=== PATIENT | male | born 2005 | race Caucasian/White ===

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

== ENCOUNTER 2025-01-09 05:37 | Day surgery (SDC) | payer SELFPAY ==
[2025-01-09] VITALS (10 sets, daily range): BP systolic 113–129; BP diastolic 65–80; PULSE 59–84; RESP 10–20; TEMP 36.2–36.8; O2SAT 84–100; BMI 23.1
[2025-01-09] MEDS: 0.9% Normal Saline (1000mL) 1,000 ML 15 ML IV (06:52)
--- NOTE | 2025-01-09 07:08 | PCM.PRE.AN2 ---
ASA Classification* ASA Classification ASA Classification: 2 Assessment & Plan Anesthesia* Anesthesia Assessment Anesthesia Assessment: Discussed sedation and/or anesthesia options, risks, benefits, and alternatives with patient/parents/legal guardian/POA. Questions invited. The patient/parents/legal guardian/POA seems to understand and agrees to proceed with anesthesia plan. Reviewed the physical assessment, medical history, allergy history and patient home medications list prior to surgery/procedure/anesthetic and documented any changes. Performed airway and anesthesia risk assessments. Anesthesia Type Anesthesia Type: General and Block (Patient is consented for postop block for pain control.) History Source History Obtained from:: Patient and Chart Anesthesia Focused Assessment* Temperature: 98.3 F Pulse Rate: 70 Blood Pressure: 129/79 Respiratory Rate: 18 Pulse Ox: 100 Oxygen Delivery Method: Room Air Airway Assessment Mouth opens: >3 cm Mallampati Score: II Teeth Condition: Intact Neck Range of motion (ROM): Full ROM Focused Labs Anesthesia Preop lab: CBC CHEMISTRY COAG Pre-Assessment Diagnosis/Proposed Procedure Planned Operative Procedure(s): (L) Arthroscopy, Knee ACL Anesthesia History 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 When Was Last Pacemaker Check QUESTION #4 FULL TEXT: You/Your Family Experience fever (hyperthermia) with Anesthesia Patient has several family members who had issues with anesthesia. Unknown which medications these were. No high temperatures or fevers as far as they know. Last Oral Intake Last Oral intake: Last Oral Intake NPO since 20:00 01/09/25 06:22 Meds taken in AM with sips of No 01/09/25 06:22 water? Meds patient instructed to take am of surgery PONV PONV - reception manager: PONV - reception manager Female No 12/26/24 08:06 HX of Motion Sickness Yes 12/26/24 08:06 HX of N/V After Surgery No 12/26/24 08:06 Non-Smoker Yes 12/26/24 08:06 Duration of Surgery greater Yes 12/26/24 08:06 than 60 minutes Number of Risk Factors 3 12/26/24 08:06 PONV Score Moderate Risk 12/26/24 08:06 Height & Weight Height & Weight: Anesthesia: Height & Weight Height 6 ft 01/09/25 06:22 Weight: 77.4 kg 01/09/25 06:22 Body Mass Index (BMI) 23.1 01/09/25 06:22 Respiratory Assessment Respiratory Assessment - reception manager: Respiratory Tract Infection Hx - reception manager Hx Respiratory Tract Infection Yes: AWARE TO NOTIFY DR IF 12/26/24 08:06 SYMPTOMS NO IMPROVED Any additional information?: Yes Hx Respiratory Tract Infection: Yes (Cold resolved back 2 weeks ago.) STOP Sleep Apnea STOP Sleep Apnea - reception manager: STOP Sleep Apnea - reception manager Hx Hypertension No 12/26/24 08:06 Hx Sleep Apnea No 12/26/24 08:06 CPAP BIPAP Do you snore loudly (louder No 12/26/24 08:06 than talking or can be heard Do you often feel tired/ No 12/26/24 08:06 fatigued/ sleepy during daytime? Has anyone observed you stop No 12/26/24 08:06 breathing during sleep? STOP Results Negative 12/26/24 08:06 QUESTION #5 FULL TEXT : Do you snore loudly (louder than talking or can be heard through closed doors)? 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 Specify any problems Hx of Preganancy in last 3 N/A 12/26/24 08:06 Months Nurse Filling Out Transfusion MGRIFFITH 12/26/24 08:06 & Questions: Date: 12/26/24 12/26/24 08:06 Time: 08:08 12/26/24 08:06 Patient unable to answer at this time (ie. confused, unrespo /Reproduction History /Reproductive History - reception manager: /Reproductive Hx- reception manager Hx Now Gestational Age (in weeks): EDC: Hx Hx Para Hx Section SAB Active Medications Active Medications: Current Medications Generic Name Dose Route Start Last Admin Trade Name Freq PRN Reason Stop Dose Admin Cefazolin Sodium 2 gm/ N/A 20 mls @ 400 mls/hr 01/09/25 07:30 IV 01/09/25 07:32 PREOP ONE Sodium Chloride 1,000 mls @ 15 mls/hr 01/09/25 06:00 01/09/25 06:52 IV 01/14/25 19:19 15 mls/hr .Q48H KAMILLA Administration Protocol PFSH Medical History Non-smoker Home Medications ?Medication ?Instructions ?Recorded ?Last Taken ?Type ascorbic acid (vitamin C) 500 mg 500 mg PO DAILY 12/26/24 01/01/25 History tablet (C-500) Allergy/AdvReac Type Severity Reaction Status Date / Time No Known Allergies Allergy Verified 01/09/25 06:21 Surgical History (Updated 12/26/24 @ 08:20 by Catrachita Monae) No significant past surgical history Social History Smoking Status: Never smoker Review of Systems (Anesthesia) ROS Narrative System reviewed and no additional complaints, except as documented.
[2025-01-09] MEDS: Cefazolin 2 GM in Syringe IV (08:02)
[2025-01-09] MEDS: Epinephrine (1 mg/ml) 1 MG/ML VIAL (08:08)
[2025-01-09] MEDS: Ketorolac 15 MG/ML Vial IV (10:20)
--- NOTE | 2025-01-09 10:25 | OP.PCM_ITS ---
Operative Report (Standard) Operative Information Date of Procedure: 01/09/25 Pre-Operative Diagnosis: 1. Left knee anterior cruciate ligament tear 2. Left knee medial meniscus tear Post-Operative Diagnosis: 1. Left knee anterior cruciate ligament tear 2. Left knee medial meniscus tear Surgery/Procedure Performed: Left knee arthroscopic anterior cruciate ligament reconstruction with quadriceps tendon autograft and medial meniscus repair vessel manager: Yes Hourly Manager: Barbara Stacy Tasks completed by cancer genetics assistant: Opening & closing, Harvesting grafts, Implanting device, Hemostasis: Electrocautery and Retracting Additional geological survey field assistant?: No Type of Anesthesia: General/Regional RN Documented Start/Stop Times: Operation Date: 01/09/25 07:30 Case Time Into Pre-Op 01/09/25 05:57 Anesthesia Start 01/09/25 07:46 Into Room 01/09/25 07:46 Procedure Start 01/09/25 08:08 Procedure End 01/09/25 09:54 Anesthesia End 01/09/25 09:57 Out of Room 01/09/25 09:57 Into Recovery 01/09/25 09:59 Procedure Start Time: 08:08 Procedure Stop Time: 09:54 Select all DRAINS/GRAFTS/IMPLANTS that apply: Implanted device Implanted device details: Arthrex 4.75 mm bio composite swivel lock anchor times Arthrex tight rope with tibial sided ABS button fixation, Arthrex fiber stitch x 1 Estimated Blood Loss: 10 cc Specimen collected: No Description of surgery: Patient was identified in preoperative holding area by name, medical record number, and date of . The operative extremity was marked. Informed consent confirmed with the patient. All questions were answered to patient satisfaction. At time of his procedure, patient was brought to the operative suite and positioned supine on a standard operating table. All bony prominences were well-padded. General anesthesia was induced and laryngeal mask airway placed. After securing the tube, I placed a well-padded pneumatic tourniquet on the upper thigh of the operative extremity. I first examined the leg under anesthesia. There was a positive pivot shift and Michael. We then positioned the operative extremity in a circumferential arthroscopic leg mchugh. A well-le g mchugh was placed on the patient's nonoperative thigh. We then dropped the foot of the bed 90 degrees. We then prepped and draped the operative lower extremity in a normal, sterile orthopedic fashion. We performed a timeout with all parties in attendance in agreement with the side, site, operation to be performed. No concerns were voiced and we elected to proceed with surgery. 2 g Ancef was administered for antibiotic prophylaxis prior to the incision by the anesthesia staff. Given the positive provocative findings and positive MRI findings consistent with ACL rupture, I elected to harvest the graft first. I planned a midline incision overlying the quadriceps tendon approximately 4 cm in length. Skin was sharply incised with a 15 blade scalpel through skin and subcutaneous tissue. Subcutaneous fat was cleared exposing the peritenon of the quadriceps. The quadriceps peritenon was carefully elevated and dissected free from the underlying tendon, in line with the skin incision. I then identified the insertion of the tendon on the superior pole of the patella. I utilized the parallel cutting guide 9 mm in diameter to establish the width of our tendon harvest. I sharply dissected the insertion off of the patella. I elevated a partial thickness graft. After gaining approximately 4 cm in length, I performed a whipstitch for fixation into the tendon with a FiberWire suture. I then utilized a sutton elevator and scalpel to continue to elevate the graft. I was able to elevate the tendon graft free to a length of 69 millimeters. This was cut sharply with the cigar cutting instrument from [employer]. The void in the quadriceps was then closed with 0 Vicryl suture. Peritenon was closed with 2-0 Vicryl suture in watertight fashion. The graft was moved to the back table where my geological survey field assistant, Nguyễn Tawanna, began to prepare the graft. She prepared a standard all inside fixation with a tight rope attachment on the femoral side. The graft was pretensioned. After the gr aft was prepared, it was left under tension and kept fresh with a moist sponge. 9.5 both tibial and femoral side was the final graft diameter. During time of graft preparation, I commenced diagnostic and operative arthroscopy. Establish a standard anterolateral portal with an 11 blade scalpel. Blunt tipped trocar and cannula was inserted through this portal as the knee was brought into full extension into the patellofemoral joint. Trocar was removed and arthroscope introduced. Examination of the knee revealed pristine cartilage throughout. Lateral meniscus was pristine. Medial meniscus demonstrated a partially healed posterior horn tear. Elected to proceed with a single horizontal mattress supplemental fixation with a fiber stitch suture device. This was placed in standard fashion, tensioned and cut flush with the meniscus. Meniscus was stable to probing following final fixation. The remnants of the ACL was then encountered. ACL rupture was confirmed. I resected the remaining portion of the ACL with a radial resector, marking the footprints with the radiofrequency ablator. I then performed a notchplasty in standard fashion with a 5.5 mm bur. I then introduced the flip cutter drill guide through the anterior lateral portal and the camera was moved to the anterior medial portal. I positioned the drill guide to allow for 2 mm of back wall at approximately the 2:00 position on the lateral wall of the notch. I made a stab incision along the lateral thigh in line with the planned trajectory of the flip cutter. Skin, subcutaneous tissue, and IT band were sharply incised and dilated. Drill guide and drill were then passed down to the level of the lateral femoral cortex. We drilled through the lateral cortex into the intercondylar notch at the planned traje ctory location. The flip cutter was then deployed to a diameter of 9.5 mm. The flip cutter was then used to retrograde drill the femoral socket to a depth of 30. Flip cutter was then retracted and pulled from the wound. A fiber stick was then introduced through the femoral socket. The fiber wire was then retrieved out the anterior lateral portal and luggage tagged. Loose pieces of bone was debrided with a radial resector from the knee. I then switched the camera to the lateral portal. I placed the tibial drill guide through the anterior medial portal planning be tunnel placement at the andreafski footprint of the ACL. I sharply incised the skin with an 11 blade scalpel through skin and subcutaneous tissues over the anterior medial tibia with planned trajectory of the drill course. I then drilled through the anterior medial tibia into the joint at the planned trajectory. I deployed the flip cutter to a diameter of 9.5 mm and drilled retrograde fashion for the tibial socket, approximately 30 mm in length. I then reversed the flip cutter to 3.5 mm and removed from the joint. I placed a tiger stick through the tibial tunnel and retrieved out the anterior medial portal. I then brought the graft to the surgical field. I retrieved the loop end of the femoral side shuttling suture through the anterior medial portal and attached to the suture ends of the femoral side button of the graft. We then passed the sutures and button through the femoral tunnel. The tight rope button was then deployed and engaged the lateral femoral cortex. We then sequentially tightened the graft to docket into the femoral tunnel. During final tightening, the self locking mechanism of the suture broke free. The 2 suture tails were intact. I passed the sutures through the femoral button. My geological survey field assistant held countertraction on the tibial side the graft and I tied several knots over the button. I elected to place a swivel lock anchor for backup fixation 2 cm proximal to our femoral tunnel. I then retrieve the passing suture for the tibial tunnel at the anteromedial portal and utilized it to pass the tibial side of the graft/sutures. Sutures were then retrieved out the tibial tunnel. I placed an ABS button through the tight rope mechanism is sequentially tightened to appropriate, maximum tension. The knee was then cycled 25 times to prevent creep. Final tightening was perfo rmed. I tied 3 half hitch knots over the tibial button. Sutures were then cut. The knee was thoroughly debrided lavage of any loose pieces of bone. Final images were obtained. Tourniquet was deflated. Hemostasis was excellent. The harvest site incision was closed in layers with interrupted buried 3-0 Vicryl suture in a running subcuticular 4 Monocryl and Dermabond. Remaining incisions were closed in interrupted [id number] fashion with 3-0 nylon suture. A sterile bulky compression dressing was applied. Patient was placed in a T ROM brace. He was safely extubated in the operative suite and transferred to his gurney and subsequently to PACU in stable condition. Patient tolerated the procedure well without apparent complication. Need for skilled geological survey field assistant: Barbara Stacy PA-C was critical to the outcome of the case. During the course of the procedure the physician geological survey field assistant played a vital role. Her intimate knowledge of my steps in the procedure aided in safe and expedient completion of the procedure. The PA played a vital role in positioning particularly in obtaining the appropriate positioning. The PA was also vital in the retraction of soft tissues during the exposure and protecting vital structures. The PA was also vital in graft harvest and graft preparation as well as hardware placement. She also played a vital role in closure and brace application with my direct supervision. Postoperative plan: Same-day discharge today Tylenol and ibuprofen every 4 hours alternating Oxycodone prescription Ice and elevation Physical therapy to start in 3 days Weightbearing as tolerated with crutches and hinged knee brace locked. Given the partial healing of the meniscus, I plan to allow the patient to rehab without meniscal repair restrictions. May discontinue the brace after quad function returns and crutches are discontinued. Follow-up in 2 weeks as scheduled Aspirin 81 mg twice daily for DVT prophylaxis x 14 days beginning postoperative day #1 Surgical Findings: Partially healed posterior horn tear medial meniscus, complete ACL tear Complications Complications: No Admit VTE Documentation VTE Present on Admission: No VTE Mechan Device Prophylaxis: SCD's VTE Pharm Prophylaxis ordered?: Yes
--- NOTE | 2025-01-09 11:29 | PCM.POST.ANE ---
Anesthesia: Postop Eval I Current Vital Signs Temperature: 97.1 F Pulse Rate: 83 Blood Pressure: 118/77 Respiratory Rate: 20 Pulse Ox: 95 Assessment Airway patent: Yes Spontaneous unlabored respirations: Yes nausea: No Vomiting: No Anesthesia Complication: No Fluid Hydration Crystalloid volume administer (ml): 1,400 Total IV fluid infused: 1,400 Progress Note Anesthesia document: Postop Eval 1 completed: Yes
== END 2025-01-09 12:10 | disposition home or self-care (01) ==
LOC: SDC 05:42 → AC 05:42
PROVIDERS: PCP Family Medicine; Referring Provider Student in an Organized Health Care Education/Training Program; Visit Provider Student in an Organized Health Care Education/Training Program
PROC: (CPT 29882; principal; 2025-01-09 07:10)
DX: S83.242A Other tear of medial meniscus, current injury, left knee, initial encounter (principal); S83.512A Sprain of anterior cruciate ligament of left knee, initial encounter; X50.1XXA Overexertion from prolonged static or awkward postures, initial encounter; Y93.68 Activity, volleyball (beach) (court)
CPT/HCPCS: 29882; 29888; 01400; 64450; 64448; C1713